=== PATIENT | male | born 1985 | race Caucasian/White ===

== ENCOUNTER 2019-02-06 19:52 | Emergency (ER) | payer OTHER ==
[2019-02-06 20:35] VITALS: O2SAT 100
[2019-02-06] MEDS ORDERED: Iohexol 240 (50 ml) PO ONE (20:55)
[2019-02-06] MEDS ORDERED: Sodium Chloride 0.9% 1,000 ML IV STA (20:55)
[2019-02-06 21:15] LABS: BASO % 0.2 % (0.0-2.0); EOS # 0.1 K/uL (0.0-0.7); EOS % 0.5 % (0.0-4.0); HEMOGLOBIN 16.8 g/dL (12.0-18.0); LYMPH # 0.4 K/uL (1.0-4.3); LYMPH % 3.7 % (20.0-40.0); MEAN CELL VOLUME 88.9 fl (80.0-94.0); MEAN CORPUSCULAR HEMOGLOBIN 30.8 pg (27.0-31.0); MEAN CORPUSCULAR HGB CONC 34.7 g/dL (33.0-37.0); MONO # 0.6 K/uL (0.0-0.8); MONO % 5.1 % (0.0-10.0); NEUT # 10.9 K/uL (1.8-7.0); NEUT % 90.5 % (50.0-75.0); NRBC % 0.1 % (0.0-0.0); PLATELET COUNT 266 K/uL (130-400); RBC 5.46 Mil/uL (4.40-5.90); RED CELL DISTRIBUTION WIDTH 12.6 % (11.5-14.5); WHITE BLOOD COUNT 12.1 K/uL (4.8-10.8)
[2019-02-06] MEDS ORDERED: Iohexol 240 (50 ml) ONE (21:17)
[2019-02-06 21:30] LABS: ALB/GLOB RATIO 1.5 (1.0-2.1); ALBUMIN 4.9 g/dL (3.5-5.0); ALT/SGPT 52 U/L (21-72); AST/SGOT 30 U/L (17-59); BLOOD UREA NITROGEN 23 mg/dl (9-20); CALCIUM 9.7 mg/dL (8.4-10.2); GFR NON-AFRICAN AMERICAN > 60; LIPASE 93 U/L (23-300)
--- NOTE | 2019-02-06 21:31 | ED PDOC ---
HPI: Abdomen Time Seen by Provider: 02/06/19 20:50 Chief Complaint (Nursing): Abdominal Pain Chief Complaint (Provider): abdominal pain History Per: Patient History/Exam Limitations: no limitations Onset/Duration Of Symptoms: Hrs (approx 8) Severity: Moderate Location Of Pain/Discomfort: Periumbilical Quality Of Discomfort: Cramping Associated Symptoms: Nausea, Vomiting, Diarrhea, Loss Of Appetite Alleviating Factors: None Last Bowel Movement: Today Additional Complaint(s): 34yo male sent to ED by PMD for concern for r/o appendicitis, has had lower abd pain and multiple episodes of nonbloody vomiting and diarrhea since approx 1pm after lunch at work of [employer]. No one else sick at work. Denies fever, dizziness, urinary symptoms or weakness . PMD in [facility] Past Medical History Reviewed: Historical Data, Nursing Documentation, Vital Signs Vital Signs: Last Vital Signs Temp 98.3 F 02/06/19 20:32 Pulse 107 H 02/06/19 20:32 Resp 16 02/06/19 20:32 BP 120/84 02/06/19 20:32 Pulse Ox 100 02/06/19 20:32 - Medical History PMH: Anxiety, Depression, Gastritis - Surgical History Other surgeries: hernia repair - Family History Family History: States: Unknown Family Hx - Social History Drugs: Denies - Allergies Allergies/Adverse Reactions: Allergies Allergy/AdvReac Type Severity Reaction Status Date / Time No Known Allergies Allergy Verified 02/06/19 20:32 Review of Systems Constitutional: Positive for: Chills Cardiovascular: Negative for: Chest Pain Respiratory: Negative for: Shortness of Breath Gastrointestinal: Positive for: Nausea, Vomiting, Abdominal Pain, Diarrhea. Negative for: Melena, Hematochezia, Hematemesis, Rectal Pain Genitourinary Male: Negative for: Dysuria Musculoskeletal: Negative for: Neck Pain, Back Pain Skin: Negative for: Rash, Lesions Neurological: Negative for: Weakness, Numbness Psych: Negative for: Suicidal ideation Physical Exam - Reviewed Nursing Documentation Reviewed: Yes Vital Signs Reviewed: Yes - Physical Exam Appears: Positive for: Well, Non-toxic, No Acute Distress Head Exam: Positive for: ATRAUMATIC, NORMAL INSPECTION, NORMOCEPHALIC Skin: Positive for: Normal Color, Warm, DRY Eye Exam: Positive for: EOMI, Normal appearance, PERRL ENT: Positive for: Normal ENT Inspection Neck: Positive for: Normal, Painless ROM Cardiovascular/Chest: Positive for: Regular Rate, Rhythm Respiratory: Positive for: CNT, Normal Breath Sounds Gastrointestinal/Abdominal: Positive for: Soft, Tenderness (mild suprapubic tenderness, neg McBurneys tenderness). Negative for: Guarding Back: Positive for: Normal Inspection Extremity: Positive for: Normal ROM Neurological/Psych: Positive for: Awake, Alert, Normal Tone, Oriented. Negative for: Motor/Sensory Deficits - Laboratory Results Result Diagrams: 02/06/19 21:12 02/06/19 21:12 - ECG O2 Sat by Pulse Oximetry: 100 Medical Decision Making Medical Decision Making: workup for lower abd pain with GI distress initiated, r/o appendicitis, colitis, diverticulitis, obstruction, hernia, gastroenteritis, UTI (less likely) labs, analgesia, CT abd pelv and antiemetic initiated CT report reviewed no evidence acute appendicitis on CT per radiologist 1210am remains nausea and having diarrhea additional IVF, antiemetic and bentyl Endorse Dr Dutta pending hopeful improvement for discharge Disposition - Clinical Impression Clinical Impression: Abdominal pain, Gastroenteritis, Pyloritis Counseled Patient/Family Regarding: Studies Performed, Diagnosis, Need For Followup, Rx Given - Disposition Disposition: Routine/Home Disposition Time: 00:09 Condition: STABLE Forms: [facility] (Slovenian)
[2019-02-06 22:15] LABS: LYMPHOCYTE 1 % (20-50); MONOCYTE 2 % (0-10); NEUTROPHIL 93 % (42-75); PLATELET ESTIMATE NORMAL (NORMAL); REACTIVE LYMPHOCYTES 4 % (0-0); TOTAL CELLS COUNTED 100
[2019-02-06] MEDS ORDERED: Sodium Chloride 0.9% 50 ML IV ONE (23:14)
[2019-02-06] MEDS ORDERED: Iohexol 300 100 ML IJ ONE (23:14)
[2019-02-07] MEDS ORDERED: Lactated Ringer's 1,000 ML IV SCH (00:15)
--- NOTE | 2019-02-07 00:40 | ED PDOC ---
- Laboratory Results Result Diagrams: 02/06/19 21:12 02/06/19 21:12 Lab Results: Total Bilirubin 0.8 mg/dl (0.2-1.3) 02/06/19 21:12 AST 30 U/L (17-59) 02/06/19 21:12 ALT 52 U/L (21-72) 02/06/19 21:12 Alkaline Phosphatase 61 U/L (38-126) 02/06/19 21:12 Total Protein 8.2 G/DL (6.3-8.2) 02/06/19 21:12 Albumin 4.9 g/dL (3.5-5.0) 02/06/19 21:12 Globulin 3.3 gm/dL (2.2-3.9) 02/06/19 21:12 Albumin/Globulin Ratio 1.5 (1.0-2.1) 02/06/19 21:12 Lipase 93 U/L (23-300) 02/06/19 21:12 - ECG O2 Sat by Pulse Oximetry: 100 Medical Decision Making Medical Decision Makin:10 Patient signed out to me by Zeus Martinez III, DO pending reevaluation. 2:17 Upon provider reevaluation patient reports an improvement in symptoms, is medically stable, and requires no further treatment in the ED at this time. Patient will be discharged home with Rx for bentyl and zofran. Counseling was provided and all questions were answered regarding diagnosis and need for follow up with PMD. There is agreement to discharge plan. Return if symptoms persist or worsen. ScribeAttestation: Documented byShanae Fraire, acting as a scribe for Rudolph Dutta MD. Provider ScribeAttestation: All medical record entries made by the Scribe were at my direction and personally dictated by me. I have reviewed the chart and agree that the record accurately reflects my personal performance of the history, physical exam, medical decision making, and the department course for this patient. I have also personally directed, reviewed, and agree with the discharge instructions and disposition. Disposition - Clinical Impression Clinical Impression: Abdominal pain, Gastroenteritis, Pyloritis - POA Present On Arrival: None - Disposition Disposition: Routine/Home Disposition Time: 02:17 Condition: IMPROVED Prescriptions: Dicyclomine [Bentyl] 20 mg PO Q12 PRN #20 tab PRN Reason: abdominal pain/diarrhea Ondansetron ODT [Zofran ODT] 4 mg PO Q6 PRN #8 odt PRN Reason: Nausea/Vomiting Instructions: Viral Gastroenteritis Forms: [facility] (Georgian)
[2019-02-07 02:37] LABS: URINE BILIRUBIN NEGATIVE (NEGATIVE); URINE BLOOD MODERATE (NEGATIVE); URINE CLARITY CLEAR (Clear); URINE COLOR YELLOW (YELLOW); URINE GLUCOSE (UA) NEG (NEGATIVE); URINE LEUKOCYTE ESTERASE NEG Leu/uL (Negative); URINE PROTEIN NEGATIVE (NEGATIVE); URINE UROBILINOGEN 0.2-1.0 mg/dL (0.2-1.0)
[2019-02-07 03:26] VITALS: BP 124/78; PULSE 96; RESP 17; TEMP 98.5
--- NOTE | 2019-02-07 11:31 | CT ---
Date of service: 02/06/2019 PROCEDURE: CT Abdomen and Pelvis with contrast HISTORY: Abdominal pain, appendicitis suspected. COMPARISON: None. TECHNIQUE: Intravenous contrast dose: 95 cc Omnipaque 300. Radiation dose: Total exam DLP = 00.51 mGy-cm. This CT exam was performed using one or more of the following dose reduction techniques: Automated exposure control, adjustment of the mA and/or kV according to patient size, and/or use of iterative reconstruction technique. FINDINGS: LOWER THORAX: Unremarkable. LIVER: Hepatic steatosis. No focal masses. No intrahepatic bile duct dilatation or perihepatic ascites. GALLBLADDER AND BILE DUCTS: Unremarkable. PANCREAS: Unremarkable. No gross lesion or ductal dilatation. SPLEEN: Unremarkable. ADRENALS: Unremarkable. No mass. KIDNEYS AND URETERS: Unremarkable. No hydronephrosis. No solid mass. VASCULATURE: Unremarkable. No aortic aneurysm. No atherosclerotic calcification or mural plaque present. BOWEL: Dilated stomach filled with fluid and debris. There is a component of duodenitis. Fluid-filled colon and small bowel. No mechanical/obstructing lesions identified. APPENDIX: A normal appendix is visualized in it's entirety. PERITONEUM: Unremarkable. No free fluid. No free air. LYMPH NODES: Unremarkable. No enlarged lymph nodes. BLADDER: Unremarkable. REPRODUCTIVE: Unremarkable. BONES: No acute fracture. OTHER FINDINGS: None. IMPRESSION: Negative study for appendicitis/right lower quadrant or pelvic inflammatory process. Duodenitis. No visible ulcer. Distended stomach. Fluid-filled small bowel and to lesser extent colon. Concordant results (preliminary interpretation) provided by [facility]. Procedure Completed: 23:31. Preliminary Report: Interpreted and electronically signed: 00:06. Final Interpretation: 11:27. February 07, 2019.
== END 2019-02-07 02:20 | disposition home or self-care (01) ==
LOC: H.ER 19:52
DX: K52.9 Noninfective gastroenteritis and colitis, unspecified (principal); K29.90 Gastroduodenitis, unspecified, without bleeding; R10.9 Unspecified abdominal pain; Z86.59 Personal history of other mental and behavioral disorders
CPT/HCPCS: 74177; 80053; 81003; 83690; 83735; 85025; 96361; 96374; 96375; 96376; 99285; J1885; J2405; J2765; J7030; J7120; Q9966; Q9967

== ENCOUNTER 2019-02-09 22:45 | Emergency (ER) | payer OTHER ==
[2019-02-09 23:51] VITALS: BP 143/95; PULSE 70; RESP 18; TEMP 97.7; O2SAT 99
== END 2019-02-09 23:48 | disposition left against medical advice (07) ==
LOC: H.ER 22:45
DX: Z02.89 Encounter for other administrative examinations (principal)